=== PATIENT | male | born 1970 | race Caucasian/White ===

== ENCOUNTER 2019-11-06 10:30 | Outpatient (CLI) | payer OTHER ==
[2019-11-06] MEDS ORDERED: HYDR50TA3 PO (11:50)
[2019-11-06] MEDS ORDERED: GABA-530 PO (11:50)
[2019-11-06] MEDS ORDERED: AMLO2.5T2 PO (11:50)
[2019-11-06] MEDS ORDERED: BUSP5TAB3 PO (11:50)
[2019-11-06] MEDS ORDERED: QUET-1 PO (11:50)
[2019-11-06] MEDS ORDERED: CARV-50 PO (11:50)
[2019-11-06 12:10] LABS: BASOPHILS % (AUTO) 0.7 % (0-1); EOSINOPHILS % (AUTO) 0 % (0-6); LYMPHOCYTES # (AUTO) 0.7 X10'3 (1.1-4.8); LYMPHOCYTES % (AUTO) 10.7 % (21-51); MEAN CORPUSCULAR HEMOGLOBIN 33.8 PG (27.0-31.0); MEAN CORPUSCULAR HGB CONC 34.3 g/dL (33.0-36.5); MEAN CORPUSCULAR VOLUME 98.6 FL (78-98); MEAN PLATELET VOLUME 7.6 FL (7.4-10.4); MONOCYTES # (AUTO) 0.7 X10'3 (0-0.9); MONOCYTES % (AUTO) 10.2 % (2-12); NEUTROPHILS # (AUTO) 5.3 X10'3 (1.8-7.7); NEUTROPHILS % (AUTO) 78.4 % (42-75); PRE OP HEMATOCRIT 43.6 % (42.0-52.0); PRE OP PLATELET COUNT 261 X10'3 (140-440); RED BLOOD COUNT 4.42 X10'6 (4.70-6.10)
[2019-11-06 12:22] LABS: ALBUMIN 3.6 G/DL (3.4-5.0); ALBUMIN/GLOBULIN RATIO 0.7 (1.1-1.5); ALKALINE PHOSPHATASE 104 IU/L (46-116); BLOOD UREA NITROGEN 10 MG/DL (7-18); BUN/CREATININE RATIO 9.8 (5.4-32.0); CALCIUM 9.3 MG/DL (8.5-10.1); CHLORIDE 97 MMOL/L (99-107); CREATININE 1.02 MG/DL (0.60-1.10); PRE OP ANION GAP 17 (8-16); PRE OP GLUCOSE 104 MG/DL (70-104); PRE OP POTASSIUM 3.6 MMOL/L (3.4-5.1); PRE OP SODIUM 137 MMOL/L (135-145); TOTAL CARBON DIOXIDE 22.9 MMOL/L (24-32); TOTAL PROTEIN 8.6 G/DL (6.4-8.2); eGFR 78 ML/MIN
[2019-11-06 12:31] LABS: PRE OP ALT 224 U/L (30-65); PRE OP AST 393 U/L (10-37)
[2019-11-15] MEDS ORDERED: CHLO25CA10 PO (11:09)
[2019-11-15] MEDS ORDERED: POTA20TA19 PO (11:09)
[2019-11-15] MEDS ORDERED: PANT-47 PO (11:09)
[2019-11-28] MEDS ORDERED: VITA-268 PO (14:45)
[2019-11-28] MEDS ORDERED: IRON-12 PO (14:45)
== END 2019-11-06 23:59 | disposition home or self-care (01) ==
LOC: PRE-OP 10:30 → EDSTATUS 11-15 08:30
PROVIDERS: ATTEND Orthopaedic Surgery
DX: Z01.812 Encounter for preprocedural laboratory examination (principal); I25.2 Old myocardial infarction; R00.0 Tachycardia, unspecified; Z20.828 Contact with and (suspected) exposure to other viral communicable diseases
CPT/HCPCS: 36415; 80053; 85025; 87081; 87635; 93005